=== PATIENT | female | born 2000 | race Two or more races ===

== ENCOUNTER 2022-02-24 16:34 | Emergency (ER) | payer OTHER ==
[~2022-02-24] VITALS: Ht 162.6 cm; Wt 50.0 kg
[2022-02-24 16:53] VITALS: BP 113/87
[2022-02-24 17:39] LABS: Basophils # (auto) 0 10 ^3/uL (0-0.2); Eosinophils # (auto) 0 10 ^3/uL (0-0.8); Lymphocytes # (auto) 1.3 10 ^3/uL (0.4-5.4); Monocytes # (auto) 0.6 10 ^3/uL (0-1.3); Red Cell Distribution Width 15.9 % (11.8-14.3)
[2022-02-24 17:41] LABS: Basophils % (auto) 0.4 % (0.0-2.0); Eosinophils % (auto) 0.4 % (0.0-7.0); Hematocrit 35.6 % (36.0-46.0); Lymphocytes % (auto) 12.9 % (10.0-50.0); Mean Corpuscular Hemoglobin 26.1 pg (28.0-32.0); Mean Corpuscular Hgb Conc. 33.7 g/dL (32.0-36.0); Mean Corpuscular Volume 77.6 fL (80.0-100.0); Monocytes % (auto) 5.7 % (0.0-12.0); Neutrophils # (auto) 8.4 10 ^3/uL (1.6-8.6); Neutrophils % (auto) 80.6 % (37.0-80.0); Nucleated Red Blood Cells % 0.1 %; Red Blood Cells 4.59 10^6/uL (4.0-5.20); White Blood Cell 10.4 10^3/uL (4.4-10.8)
[2022-02-24 17:52] LABS: Albumin 3.7 g/dL (3.4-5.0); BUN/Creatinine Ratio 27.1; Potassium 4.2 mmol/L (3.5-5.1)
[2022-02-24 17:55] LABS: Bilirubin, Total 0.5 mg/dL (0.2-1.0); Total Protein 7.6 g/dL (6.4-8.2)
[2022-02-24 18:10] LABS: Urine Bacteria NONE SEEN /hpf (None Seen); Urine Blood Negative /uL (Negative); Urine Mucus FEW (None Seen); Urine WBC 2 /hpf (0 - 5)
== END 2022-02-24 20:55 | disposition left against medical advice (07) ==
LOC: ER 16:34
DX: R10.33 Periumbilical pain (principal); R11.2 Nausea with vomiting, unspecified; R10.2 Pelvic and perineal pain; Z53.21 Procedure and treatment not carried out due to patient leaving prior to being seen by health care provider
CPT/HCPCS: 36415; 80053; 81001; 83690; 84702; 85025